=== PATIENT | female | born 2000 | race Two or more races ===

== ENCOUNTER 2023-05-21 07:02 | Emergency (ER) | payer MEDICAID ==
[~2023-05-21] VITALS: Ht 147.3 cm; Wt 73.3 kg
[2023-05-21 07:50] VITALS: BP 102/58; PULSE 65; RESP 16; TEMP 97; O2SAT 100
[2023-05-21 08:01] LABS: Urine Bacteria NONE SEEN /hpf (None Seen); Urine Blood 3+ /uL (Negative); Urine Budding Yeast MODERATE /hpf (None Seen); Urine Clarity HAZY (Clear); Urine Color Red (Yellow); Urine Mucus FEW (None Seen); Urine Protein, UAD 1+ (Negative); Urine Specific Gravity 1.019 (1.001-1.035); Urine Urobilinogen Normal (Negative); Urine WBC 386 /hpf (0 - 5); Urine WBC Clumps PRESENT /hpf (None Seen)
[2023-05-21] MEDS ORDERED: BACDST PO (08:23)
[2023-05-21] MEDS ORDERED: PHEN-922 PO (08:23)
[2023-05-21] MEDS ORDERED: PHENAZOPYRIDINE HCL 100 MG TAB PO ONE (08:30)
== END 2023-05-21 08:43 | disposition home or self-care (01) ==
LOC: ER 07:02
DX: N39.0 Urinary tract infection, site not specified (principal); Z79.899 Other long term (current) drug therapy
CPT/HCPCS: 81001; 81025